=== PATIENT | male | born 1965 ===

== ENCOUNTER 2022-01-24 08:48 | Emergency (ER) | payer MEDICARE, OTHER, SELFPAY ==
[2022-01-24 08:50] VITALS: BP 155/91; PULSE 88; RESP 16; TEMP 36.8; O2SAT 99
--- NOTE | 2022-01-24 09:20 | ED.SKABFB ---
HPI - Skin/Abscess/Foreign Bdy General Chief complaint: Skin/Abscess/Foreign Body Stated complaint: abcess on back Time Seen by Provider: 01/24/22 08:54 Source: patient and family Mode of arrival: ambulatory Limitations: no limitations History of Present Illness HPI narrative: 57-year-old with a history of ESRD on hemodialysis here with complaints of pain and swelling to the right scapular area. Patient states that he had a small cyst on his back and his made a small hole in drained pus out , he states he gets his care at [facility] . He denies any fever . complaint: abscess/boil Onset (ago): week(s) (1) Location: back (right scapular area) Severity: mild Quality: aching Pain Consistency: constant Relieving factors: none Exacerbating factors: none Context: none Associated symptoms: denies other symptoms Related Data Allergies Allergy/AdvReac Type Severity Reaction Status Date / Time iohexol Allergy Swelling Verified 01/24/22 09:01 [From contrast - CT, X-RAY] Review of Systems Review of Systems: All systems reviewed & are unremarkable except as noted in HPI and below Constitutional: Constitutional: Reports no additional constitutional complaints Eyes: Eyes: Reports no additional eye complaints ENT: Reports system reviewed and no additional complaints, except as documented Cardiovascular: Cardiovascular: Reports no additional cardiovascular complaints Respiratory: Respiratory: Reports no additional respiratory complaints Gastrointestinal: Gastrointestinal: Reports no additional gastrointestinal complaints Musculoskeletal: Musculoskeletal: Reports no additional musculoskeletal complaints Integumentary/Breasts: Skin/Breast: Reports as per HPI Exam Narrative: GENERAL: Well-appearing, well-nourished, and in no acute distress. HEAD: Normocephalic, atraumatic. EYES: PERRLA and EOMI. NECK: Supple. CHEST: Clear to auscultation. No respiratory distress. HEART: Regular rate and rhythm. No murmur heard. Normal peripheral pulses. ABDOMEN: Soft, nontender, nondistended, normal active bowel sounds. Back has a small sebaceous cyst tender on palpation , not draining EXTREMITIES: Normal range of motion. No edema. SKIN: Warm, dry, no rash. NEURO: No focal deficits. Alert and oriented x3. PSYCH: Normal mood and affect. Course Course Emergency Course: informed pt about following with a surgeon for removal of the cyst and meanwhile take antibiotic , Vital Signs Vital signs: Vital Signs Temperature 36.8 C 01/24/22 08:50 Pulse Rate 88 01/24/22 08:50 Respiratory Rate 16 01/24/22 08:50 Blood Pressure 155/91 H 01/24/22 08:50 Pulse Oximetry 99 01/24/22 08:50 Temperature 36.8 C 01/24/22 08:50 Pulse Rate 88 01/24/22 08:50 Respiratory Rate 16 01/24/22 08:50 Blood Pressure 155/91 H 01/24/22 08:50 Pulse Oximetry 99 01/24/22 08:50 Discharge Plan Discharge Clinical Impression: Infected sebaceous cyst Patient Disposition: Home, Self-Care Condition: Stable Instructions: Antibiotic Form, Cyst (ED) Additional Instructions: continue home medications ,take antibiotic as prescribed , follow with a Surgeon in the next few days for surgical removal of the cyst Prescriptions: New doxycycline hyclate 100 mg capsule 100 mg PO BID Qty: 14 0RF Follow-up/Referrals: Tarik Foreman MD [Physician] - PHYSICIAN NOT ON STAFF,NONSTAFF [Primary Care Provider] - Time of Disposition: 09:23
== END 2022-01-24 09:30 | disposition home or self-care (01) ==
PROVIDERS: Emergency Provider Family Medicine
DX: L72.3 Sebaceous cyst (principal); L08.9 Local infection of the skin and subcutaneous tissue, unspecified; N18.6 End stage renal disease; Z99.2 Dependence on renal dialysis
CPT/HCPCS: 99283